=== PATIENT | male | born 1955 | race Caucasian/White ===

== ENCOUNTER → 2020-05-23 | Outpatient (CLI) | payer BC ==
[~2020-05-23] MED LIST: AMBIEN5 MG PO; AMIODARONE HCL200 MG PO; FUROSEMIDE40 MG PO; JALYN 0.5-0.41 EACH PO; KLOR-CON 1010 MEQ PO; LISINOPRIL2.5 MG PO; METOPROLOL TART25 MG PO; PROAIR HFA INH8.5 GM PO; XARELTO20 MG PO
--- NOTE | 2020-05-23 12:43 | Diagnostic Imaging Report ---
EXAMINATION: SP LUMBAR, COMPLETE MIN 4VW INDICATION: Back pain COMPARISON: None FINDINGS: AP, lateral and oblique radiograph of the lumbar spine were obtained. No acute fracture. Vertebral body heights are maintained. Alignment is anatomic. Mild multilevel degenerative changes with small osteophyte formation. Oblique images demonstrate no evidence of spondylolysis. Scattered atherosclerotic arterial calcifications. IMPRESSION: Mild lumbar spine degenerative changes without acute osseous injury. Signed by: Salty Tejeda MD on 05/23/2020 12:39 PM
== END ==
LOC: RAD 11:53
PROVIDERS: ATTEND Family Medicine
DX: M54.5 Low back pain (principal)
CPT/HCPCS: 72110

== ENCOUNTER 2024-03-29 12:12 | Emergency (ER) | payer BC ==
[~2024-03-29] VITALS: Ht 188 cm; Wt 140.6 kg
[2024-03-29 13:12] LABS: BASOPHILS # (AUTO) 0.1 (0.0-0.1); BASOPHILS % 0.8 % (0.0-1.0); EOSINOPHILS # (AUTO) 0.3 (0.0-0.4); EOSINOPHILS % 3.4 % (0.0-6.0); HEMATOCRIT 47.7 % (38.2-49.6); HEMOGLOBIN 16.2 g/dL (14.0-18.0); LYMPHOCYTES # (AUTO) 2.5 (1.0-3.2); LYMPHOCYTES % 24.9 % (18.0-39.1); MEAN CORPUSCULAR HEMOGLOBIN 30.5 pg (28-32); MEAN CORPUSCULAR VOLUME 89.8 fL (81-99); MONOCYTES # (AUTO) 0.9 (0.2-0.8); MONOCYTES % 9.1 % (4.4-11.3); NEUTROPHILS # (AUTO) 6.2 (2.1-6.9); NEUTROPHILS % 61.5 % (38.7-80.0); PLATELET COUNT 226 x10e3/uL (140-360); RED BLOOD COUNT 5.31 x10e6/uL (4.3-5.7); WHITE BLOOD COUNT 10.04 x10e3/uL (4.8-10.8)
[2024-03-29 13:29] VITALS: O2SAT 96
[2024-03-29 13:34] VITALS: BP 120/82; PULSE 89
[2024-03-29] MEDS: METOPROLOL TARTRATE INJ 1 MG/ML VIAL IV ONE (13:34)
[2024-03-29 13:35] LABS: ALBUMIN 3.2 g/dL (3.5-5.0); ANION GAP 13.5 mmol/L (8-16); BILIRUBIN,TOTAL 0.4 mg/dL (0.2-1.2); CALCIUM 8.9 mg/dL (8.4-10.2); CREATININE, SERUM 0.72 mg/dL (0.72-1.25); POTASSIUM 4.5 mmol/L (3.5-5.1); TOTAL PROTEIN 6.4 g/dL (6.5-8.1)
[2024-03-29] MEDS ORDERED: ACYCLOVIR800 MG PO (14:35)
[2024-03-29] MEDS ORDERED: PREDNISONE50 MG PO (14:36)
[2024-03-29] MEDS ORDERED: ARTIFICIAL TEAR15 ML OD (14:36)
== END 2024-03-29 14:57 | disposition home or self-care (01) ==
LOC: ER 12:31
DX: G51.0 Bell's palsy (principal); I10 Essential (primary) hypertension; E11.65 Type 2 diabetes mellitus with hyperglycemia; R94.31 Abnormal electrocardiogram [ECG] [EKG]
CPT/HCPCS: 36415; 70450; 80053; 85025; 93005; 99284